=== PATIENT | female | born 1985 | race African-American/Black ===

== ENCOUNTER 2017-03-02 10:30 | Emergency (ER) | payer OTHER ==
[2017-03-02 10:37] VITALS: BMI 31.2
--- NOTE | 2017-03-02 11:12 | PDOC ---
History of Present Illness <Angela Hu - Last Filed: 03/02/17 14:00> - History of Present Illness Initial Comments: 03/02/17 18:22 The patient is a 31 year old approximately 5 weeks + 3 days female ( ), with a significant past medical history of first trimester miscarriages, who presents to the emergency department with lower abdominal discomfort and intermittent vaginal bleeding for approximately 6 days. The patient reports presenting to her OB 10 days ago, where she found out she was . Since then, patient reports developing suprapubic abdominal discomfort(different from her period) and vaginal spotting 2 days later. Patient reports her bleeding is intermittent in nature, and varies from a brown to red color. She reports 3 episodes of bleeding, once 10 days ago, again 2 days ago and once today. She denies heavy bleeding, states her bleeding has usually just been spotting. Patient reports associated lower back pain. She denies any nausea, vomiting, diarrhea, or constipation. She denies any dysuria, hematuria, frequency, or urgency. She denies any fever, chills, cough, headache, or dizziness. She denies any recent travel or sick contacts. No history of clotting disorders. Allergies: NKDA Past Surgical History: Gastric bypass Social History: Non smoker. No ETOH or recreational drug use. PCP: Dr. Royal Alcantara OBGYN: Dr. Pinzon <Delroy Moser - Last Filed: 03/02/17 18:47> - General Chief Complaint: Vaginal Bleeding Stated Complaint: 6WKS,BLEEDING Time Seen by Provider: 03/02/17 11:12 Past History <Angela Hu - Last Filed: 03/02/17 14:00> - Past Medical History COPD: No - Surgical History Abdominal Surgery: Yes (GASTRIC BYPASS) - Reproductive History (#): 2 Para: 0 - Suicide/Smoking/Psychosocial Hx Smoking Status: No Smoking History: Never smoked Have you smoked in the past 12 months: No Number of Cigarettes Smoked Daily: 0 Hx Alcohol Use: No Drug/Substance Use Hx: No Substance Use Type: None <Delroy Moser - Last Filed: 03/02/17 18:47> - Past Medical History Allergies/Adverse Reactions: Allergies Allergy/AdvReac Type Severity Reaction Status Date / Time No Known Allergies Allergy Verified 03/02/17 10:37 Home Medications: Ambulatory Orders Pnv No.122/Iron/Folic Acid [ Multi Tablet] 1 each PO DAILY 03/02/17 Review of Systems - Review of Systems Comments:: 03/02/17 18:23 GENERAL/CONSTITUTIONAL: No fever or chills. No weakness. HEAD, EYES, EARS, NOSE AND THROAT: No change in vision. No ear pain or discharge. No sore throat. GASTROINTESTINAL: Yes suprapubic abdominal discomfort. No nausea, vomiting, diarrhea or constipation. GENITOURINARY: Yes vaginal spotting/ bleeding. No dysuria, frequency, or change in urination. CARDIOVASCULAR: No chest pain or shortness of breath. RESPIRATORY: No cough, wheezing, or hemoptysis. MUSCULOSKELETAL: Yes lower back pain. No joint or muscle swelling or pain. No neck or back pain. SKIN: No rash NEUROLOGIC: No headache, vertigo, loss of consciousness, or change in strength/ sensation. ENDOCRINE: No increased thirst. No abnormal weight change. HEMATOLOGIC/LYMPHATIC: No anemia, easy bleeding, or history of blood clots. ALLERGIC/IMMUNOLOGIC: No hives or skin allergy. <Nassef,Yomna - Last Filed: 03/02/17 18:47> *Physical Exam - Vital Signs Last Vital Signs Temp Pulse Resp BP Pulse Ox 98 F 80 17 124/86 99 03/02/17 13:51 03/02/17 13:51 03/02/17 13:51 03/02/17 13:51 03/02/17 13:51 <Hu,Giomilsy - Last Filed: 03/02/17 14:00> - Vital Signs Last Vital Signs Temp Pulse Resp BP Pulse Ox 99.5 F 101 H 20 141/85 99 03/02/17 10:34 03/02/17 10:34 03/02/17 10:34 03/02/17 10:34 03/02/17 10:34 - Physical Exam Comments: 03/02/17 18:23 GENERAL: Awake, alert, and fully oriented, in no acute distress HEAD: No signs of trauma EYES: PERRLA, EOMI, sclera anicteric, conjunctiva clear ENT: Auricles normal inspection, hearing grossly normal, nares patent, oropharynx clear without exudates. Moist mucosa NECK: Normal ROM, supple, no lymphadenopathy, JVD, or masses LUNGS: Breath sounds equal, clear to auscultation bilaterally. No wheezes, and no crackles HEART: Regular rate and rhythm, normal S1 and S2, no murmurs, rubs or gallops ABDOMEN: Soft, nontender, normoactive bowel sounds. No guarding, no rebound. No masses PELVIC: Scant blood in vaginal vault. Cervical os is closed .No Cervical Motion tenderness. No midline or adnexal ttp EXTREMITIES: Normal range of motion, no edema. No clubbing or cyanosis. No cords, erythema, or tenderness BACK: No midline spinal tenderness in cervical/thoracic/lumbar region NEUROLOGICAL: Normal speech, cranial nerves intact, negative pronator drift, 5/ 5 strength in all 4 extremities, normal sensation to light touch in all 4 extremities, normal cerebellar exam, normal gait, normal reflexes and tone SKIN: Warm, Dry, normal turgor, no rashes or lesions noted. <Delroy Moser - Last Filed: 03/02/17 18:47> ED Treatment Course - LABORATORY CBC & Chemistry Diagram: 03/02/17 11:18 03/02/17 11:18 - ADDITIONAL ORDERS Additional order review: Laboratory Results 03/02/17 03/02/17 03/02/17 11:18 11:18 11:18 Sodium 139 Potassium 4.1 Chloride 105 Carbon Dioxide 27 Anion Gap 7 L BUN 5 L Creatinine 0.8 Creat Clearance w eGFR > 60 Random Glucose 144 H Calcium 8.9 Total Bilirubin 0.5 AST 13 L ALT 24 Alkaline Phosphatase 54 Total Protein 6.9 Albumin 3.6 Beta HCG, Quant 4604.3 Urine Color Yellow Urine Appearance Clear Urine pH 5.0 Ur Specific [place] 1.017 Urine Protein Negative Urine Glucose (UA) Negative Urine Ketones Negative Urine Blood 1+ H Urine Nitrite Negative Urine Bilirubin Negative Urine Urobilinogen Negative Urine WBC (Auto) 2 Urine RBC (Auto) 1 Ur Epithelial Cells Rare Urine Mucus Rare Blood Type O POSITIVE Antibody Screen Negative 03/02/17 11:18 RBC 4.24 MCV 92.0 MCHC 32.5 RDW 13.4 MPV 8.4 Neutrophils % 63.8 Lymphocytes % 27.7 Monocytes % 7.0 Eosinophils % 1.1 Basophils % 0.4 <Angela Hu - Last Filed: 03/02/17 14:00> - LABORATORY CBC & Chemistry Diagram: 03/02/17 11:18 03/02/17 11:18 <Delroy Moser - Last Filed: 03/02/17 18:47> Medical Decision Making - Medical Decision Making 03/02/17 14:00 First call placed to Dr. Pinzon's office at 13:56. Dr. Pinzon is not in the office today and hazard mitigation officer advised to contact Laborist fire controlman. <Angela Hu - Last Filed: 03/02/17 14:00> - Medical Decision Making 03/02/17 13:48 31-year-old female presents at 5 weeks 3 days with vaginal bleeding. Patient reports seeing blood when she wiped. Denies heavy bleeding or clots. Vitals are unremarkable. On exam, her os is closed but she has blood in the vault with no active bleeding. Concern for spontaneous versus bleeding of first trimester . Her beta hCG is confirmed with Dr. Negrete ( Dr. Pinzon's partner) on 02/28 was 3473. Will repeat today and obtain TVUS. 03/02/17 14:53 Beta today is 4600, and has not doubled since previous beta 48 hours ago. This is concerning for miscarriage. Transvaginal ultrasound shows IUP with no heart activity however it may be too early to tell. Results discussed with patient. Attempted to call her OB doctor Luis Fernando who will not be in the office on Tuesday for repeat beta however we were able to get in touch with his partner Dr. Negrete will follow up with the patient on March 04 at 9 AM. Plan discussed with patient who agrees. Will discharge with return precautions. I discussed the physical exam findings, ancillary test results and final diagnoses with the patient. I answered all of the patient's questions. The patient was satisfied with the care received and felt comfortable with the discharge plan and treatment plan. The patient will call their primary care physician within 24 hours to arrange follow-up and will return to the Emergency Department with any new, persistent or worsening symptoms. <Delroy Moser - Last Filed: 03/02/17 18:47> *DC/Admit/Observation/Transfer <Angela Hu - Last Filed: 03/02/17 14:00> - Discharge Dispostion Admit: No - Attestations Physician Attestion: 03/02/17 14:58 I, Dr. Delroy Moser MD, attest that this document has been prepared under my direction and personally reviewed by me in its entirety. I further attest, that it accurately reflects all work, treatment, procedures and medical decision -making performed by me. <Delroy Moser - Last Filed: 03/02/17 18:47> Diagnosis at time of Disposition: Vaginal bleeding in - Discharge Dispostion Disposition: HOME Condition at time of disposition: Stable - Referrals Referrals: Royal Alcantara [Primary Care Provider] - - Patient Instructions Printed Discharge Instructions: DI for Vaginal Bleeding During Additional Instructions: Follow-up with Dr. Negrete on March 04 at 9 AM for a repeat blood test. Her office is located at; [address] [place] [address] Return to the emergency department if you have heavy bleeding, or you are soaking more than 2 pads/hour for more than 3 hours. Return to the emergency department if you have any new, worsening or concerning symptoms. - Post Discharge Activity
[2017-03-02 11:21] LABS: BASOPHIL 0.4 % (0-2.0); EOSINOPHIL 1.1 % (0-4.5); MCH 29.9 pg (25.7-33.7); MCHC 32.5 g/dl (32.0-36.0); MEAN PLT VOLUME 8.4 fl (7.5-11.1); NEUTROPHILS 63.8 % (42.8-82.8); PLATELET COUNT 207 K/MM3 (134-434); RDW 13.4 % (11.6-15.6); WHITE BLOOD COUNT 6.8 K/mm3 (4.0-10.0)
[2017-03-02 11:25] LABS: URINE APPEARANCE CLEAR; URINE BILIRUBIN NEGATIVE (NEGATIVE); URINE BLOOD 1+ (NEGATIVE); URINE COLOR YELLOW; URINE GLUCOSE (UA) NEGATIVE (NEGATIVE); URINE KETONE NEGATIVE (NEGATIVE); URINE LEUK ESTERASE NEGATIVE (NEGATIVE); URINE NITRITE NEGATIVE (NEGATIVE); URINE PROTEIN NEGATIVE (NEGATIVE); URINE UROBILINOGEN NEGATIVE mg/dL (0.2-1.0)
[2017-03-02 11:29] LABS: URINE MUCUS RARE; URINE RBC 1 /hpf (0-3); URINE WBC 2 /hpf (3-5)
[2017-03-02 11:50] LABS: ALBUMIN 3.6 g/dl (3.4-5.0); ANION GAP 7 (8-16); BILIRUBIN,TOTAL 0.5 mg/dL (0.2-1.0); CALCIUM 8.9 mg/dL (8.5-10.1); CO2 27 mmol/L (21-32); CREATININE 0.8 mg/dL (0.55-1.02); GLUCOSE,RANDOM 144 mg/dL (74-106); SGOT/AST 13 U/L (15-37); SGPT/ALT 24 U/L (12-78); TOT PROT 6.9 g/dl (6.4-8.2)
[2017-03-02 11:52] LABS: ALK PHOS 54 U/L (45-117)
[2017-03-02 13:52] VITALS: BP 124/86; PULSE 80; TEMP 98
[2017-03-02 17:10] LABS: URINE LEUK ESTERASE Negative (NEGATIVE)
== END 2017-03-02 15:00 | disposition home or self-care (01) ==
LOC: JER 10:30
DX: O26.891 Other specified pregnancy related conditions, first trimester (principal); O20.8 Other hemorrhage in early pregnancy; Z3A.01 Less than 8 weeks gestation of pregnancy
CPT/HCPCS: 36415; 76817-TC; 80053; 81003; 81015; 84702; 85025; 86850; 86900; 86901; 87086; 99282-25

== ENCOUNTER 2020-04-27 12:39 | Emergency (ER) | payer OTHER ==
[2020-04-27 12:53] VITALS: BMI 35.6
[2020-04-27] MEDS ORDERED: AZITHROMYCIN 500 MG TABLET PO ONE (13:11)
[2020-04-27] MEDS ORDERED: DEXAMETHASONE SOD PHOSPHATE 4 MG/1 ML VIAL IM ONE (13:12)
[2020-04-27] MEDS ORDERED: ACETAMINOPHEN 325 MG TABLET (FP) PO ONE (13:13)
[2020-04-27] MEDS ORDERED: AZITHROMYCIN 250 MG TABLET ONE (13:31)
[2020-04-27] MEDS ORDERED: ACETAMINOPHEN 325 MG TABLET (FP) ONE (13:32)
[2020-04-27] MEDS ORDERED: DEXAMETHASONE SOD PHOSPHATE 10 MG/1 ML VIAL ONE (13:32)
[2020-04-27] MEDS ORDERED: BAMLANIVIMAB 700 MG in SODIUM CHLORIDE 250 ML IVPB ONE (13:37)
[2020-04-27 14:07] VITALS: BP 139/92; PULSE 114; TEMP 99
== END 2020-04-27 14:24 | disposition home or self-care (01) ==
LOC: JER 12:39
PROC: 3E03328 Introduction of Oxazolidinones into Peripheral Vein, Percutaneous Approach (ICD-10-PCS; principal; 2020-04-27)
PROC: 3E033NZ Introduction of Analgesics, Hypnotics, Sedatives into Peripheral Vein, Percutaneous Approach (ICD-10-PCS; 2020-04-27)
DX: U07.1 COVID-19 (principal)
CPT/HCPCS: 99285-25